=== PATIENT | male | born 1985 | race Caucasian/White ===

== ENCOUNTER 2020-10-06 07:22 | Emergency (ER) | payer MEDICAID ==
[~2020-10-06] VITALS: Ht 188 cm; Wt 105.6 kg
[2020-10-06 08:26] LABS: BASOPHILS # (AUTO) 0.1 X10'3 (0-0.2); BASOPHILS % (AUTO) 0.5 % (0-1); EOSINOPHILS # (AUTO) 0.2 X10'3 (0-0.9); EOSINOPHILS % (AUTO) 2.1 % (0-6); HEMATOCRIT 52.5 % (42.0-52.0); LYMPHOCYTES # (AUTO) 1.6 X10'3 (1.1-4.8); LYMPHOCYTES % (AUTO) 14.6 % (21-51); MEAN CORPUSCULAR HEMOGLOBIN 33.2 PG (27.0-31.0); MEAN CORPUSCULAR HGB CONC 35.2 g/dL (33.0-36.5); MEAN CORPUSCULAR VOLUME 94.2 FL (78-98); MEAN PLATELET VOLUME 10.3 FL (7.4-10.4); MONOCYTES # (AUTO) 1.1 X10'3 (0-0.9); MONOCYTES % (AUTO) 10.5 % (2-12); NEUTROPHILS # (AUTO) 7.8 X10'3 (1.8-7.7); NEUTROPHILS % (AUTO) 72.3 % (42-75); PLATELET COUNT 173 X10'3 (140-440); RED BLOOD COUNT 5.58 X10'6 (4.70-6.10); RED CELL DISTRIBUTION WIDTH 12.2 % (11.5-14.5); WHITE BLOOD COUNT 10.8 X10'3 (4.5-11.0)
[2020-10-06 08:40] LABS: ALANINE AMINOTRANSFERASE 21 U/L (12-78); ALBUMIN 4.3 G/DL (3.4-5.0); ALBUMIN/GLOBULIN RATIO 1.1 (1.1-1.5); ALKALINE PHOSPHATASE 70 IU/L (46-116); ANION GAP 8 (8-16); ASPARTATE AMINO TRANSFERASE 12 U/L (10-37); BILIRUBIN,TOTAL 0.7 MG/DL (0.1-1.0); BLOOD UREA NITROGEN 11 MG/DL (7-18); BUN/CREATININE RATIO 11.6 (5.4-32.0); CALCIUM 9.1 MG/DL (8.5-10.1); CHLORIDE 105 MMOL/L (99-107); CREATININE 0.95 MG/DL (0.60-1.10); GLUCOSE 97 MG/DL (70-104); POTASSIUM 4.2 MMOL/L (3.5-5.1); SODIUM 143 MMOL/L (135-145); TOTAL CARBON DIOXIDE 30.5 MMOL/L (24-32); TOTAL PROTEIN 8.2 G/DL (6.4-8.2); eGFR 89 ML/MIN
--- NOTE | 2020-10-06 08:42 | NUR ---
CALLED CT TO INFORM THAT PT IS READY ,PT HAS IV ACCESS.
[2020-10-06] MEDS ORDERED: iohexol 300mg/ml 100ml inj. ONE (08:46)
[2020-10-06 09:00] LABS: HEMOGLOBIN 18.5 g/dl (14.0-17.9)
[2020-10-06 09:24] VITALS: BP 150/107
[2020-10-06] MEDS ORDERED: MELO7.5T12 PO (10:24)
[2020-10-06] MEDS ORDERED: CYCL-1 PO (10:24)
== END 2020-10-06 10:46 | disposition home or self-care (01) ==
LOC: ER 07:23
DX: M75.22 Bicipital tendinitis, left shoulder (principal); G89.29 Other chronic pain; E05.90 Thyrotoxicosis, unspecified without thyrotoxic crisis or storm; F17.200 Nicotine dependence, unspecified, uncomplicated; Z88.0 Allergy status to penicillin; Z79.899 Other long term (current) drug therapy; Z90.49 Acquired absence of other specified parts of digestive tract; Z85.89 Personal history of malignant neoplasm of other organs and systems
CPT/HCPCS: 36415; 70491; 80053; 85025; 99285; Q9967; 99284

== ENCOUNTER 2025-06-27 17:42 | Emergency (ER) | payer MEDICAID ==
[~2025-06-27] VITALS: Ht 188 cm; Wt 105.5 kg
[~2025-06-27 17:42] MED LIST: CYCL-1 PO; MELO7.5T12 PO
[2025-06-27 17:44] VITALS: BP 180/113; PULSE 108; O2SAT 96
--- NOTE | 2025-06-27 19:44 | Physician Documentation ---
History of Present Illness ~ Chief Complaint: Back Pain Stated Complaint: BACK PAIN Time Seen by MD: 19:04 Primary Medical Doctor: [facility] HPI 40-year-old male presents to the ED with a complaint of acute onset lumbar pain and upper cervical pain after maneuvering a injured in this afternoon. He had denies any motor and sensory dysfunction in the lower extremities, and saddle anaesthesia, impacting bladder and bowel function. Does report sciatica down the right leg. Day of Onset: Jun 27, 2025 Medication Reconciliation Allergies: Coded Allergies: Penicillins (Verified Allergy, Unknown, 05/27/14) Scheduled Cyclobenzaprine* (Cyclobenzaprine*), 1 TAB PO HS Meloxicam (Mobic), 1 TAB PO DAILY Past Medical History Past Medical History: Hyperthyroidism, Chronic Pain, Chronic Back Pain Past Surgical History: cholecystectomy Patient History: (Cancer) Malignant carcinoid tumor MOTHER, Name: Tenisha Schuler (glaucoma,uterine cancer.pancreatic,arthritis), Born [birth year], Age: 64, Not a twin, Onset:23 (DM Type1) Diabetes mellitus type 1 FATHER, Name: Leonard Schuler (Asthma,emphysema,COPD (non-smoker),arthritis,Type 1 Diabetic), Born [birth year], Age: 68, Not a twin, Onset:52 Asthma FATHER, Name: Leonard Schuler (Asthma,emphysema,COPD (non-smoker),arthritis,Type 1 Diabetic), Born [birth year], Age: 68, Not a twin, Onset:20's - 25 Cardiac arrest Hypercholesterolemia No Family History of: (CABG) Coronary artery bypass grafting (CAD) Coronary arteriosclerosis (CHF) Congestive heart failure (COPD) Chronic obstructive lung disease (CVA) Cerebrovascular accident (DM Type 2) Diabetes mellitus type 2 ([place]) Myocardial infarction (PVD) Peripheral vascular disease (TIA) Transient ischemic attack Alzheimer's disease Aortic aneurysm Smoking Status: Current every day smoker Alcohol Use: None Drug Use: none Lives with: Mother, Father Lives In: Home Occupation: employed Review of Systems All Other Systems at this time: Reviewed and Negative ROS As stated above in the HPI, otherwise all systems are reviewed and negative. Constitutional: Reports: no symptoms reported Physical Exam Physical Exam Vital Signs: Temperature: 97.7, Source: Temporal, Heart Rate: 108, Respiratory Rate: 16, BP: 180/113, Pulse Oximetry: 96, Weight: 105.500 Oxygen Flow Rate: 0 Physical Exam General: Alert, no apparent distress. Neck: Full range of motion. Respiratory: Lungs clear, no respiratory distress. Cardiovascular: Regular rate and rhythm, no murmurs. Gastrointestinal: Soft, nontender, nondistended. Bowels sounds present. Extremities: Normal range of motion, no deformity. Neurologic: Oriented x4. reflexes normal Psychiatric: Normal mood and affect. Skin: Normal color, warm and dry. No edema, no ecchymosis. Progress Results/Orders Results/Orders Completed Orders - JUANITO HERNANDEZ [employer] Diazepam Tablet (Valium Tablet) (06/27/25 19:35) Morphine 4mg/Ml Inj. (Morphine Inj.) (06/27/25 19:35) Ketorolac Trometh 30mg/Ml Vial (Toradol (06/27/25 19:35) Medications Received in ER Medications (Trade) Dose Ordered Sig/Veronique Route PRN Reason Start Time Stop Time Status Last Admin Dose Admin (Valium tablet) 10 mg ONCE ONCE PO 06/27/25 19:35 06/27/25 19:36 DC 06/27/25 19:49 10 MG (morphine inj.) 4 mg ONCE ONCE IM 06/27/25 19:35 06/27/25 19:36 DC 06/27/25 19:50 4 MG (Toradol inj. 30mg/ml) 30 mg ONCE ONCE IM 06/27/25 19:35 06/27/25 19:36 DC 06/27/25 19:52 30 MG Vital Signs 06/27/25 06/27/25 06/27/25 17:44 19:50 19:52 Temp 97.7 Pulse 108 Resp 16 16 16 B/P (MAP) 180/113 Pulse Ox 96 O2 Flow Rate 0 Medical Decision Making Differential Dx:Considerations: Include: AAA, Aortic dissection, Appendicitis, Bowel obstruction, Cholelithiasis, Cholangitis, DJD, Fracture, Hepatitis, HNP, Musculoskeletal pain, Pancreatitis, Pyelonephritis, Renal infarction, Strain, Urinary obstruction, Urolithiasis, Urinary tract infection, Other Departure Disposition: 01 HOME / SELF CARE / HOMELESS Impression: Primary Impression: Back problem Discharge Instructions: Acute Back Pain, Adult Referrals: NO PRIMARY CARE PROVIDER (PCP) Prescriptions Naproxen (Naproxen) 500 Mg Tablet 1 TAB PO Q12H, #20 TAB Prov: JUANITO HERNANDEZ NP 06/27/25 Cyclobenzaprine HCl (Cyclobenzaprine HCl) 10 Mg Tablet 1 TAB PO Q8H for muscle spasms for 10 Days, #30 TAB Prov: JUANITO HERNANDEZ NP 06/27/25 Education Educated: Patient Educated regarding: diagnosis Signature Scribe Signature: g Attestation: Scribed for Juanito Hernandez [employer] by Juanito Villaseñor NP . 06/27/25 19:43 JUANITO HERNANDEZ NP Jun 27, 2025 19:43
[2025-06-27] MEDS: morphine 4 MG/ML inj SYRINge IM ONE (19:50)
[2025-06-27 19:52] VITALS: RESP 16
[2025-06-27] MEDS: ketorolac trometh 30MG/ML vial 30 MG/ML VIAL IM ONE (19:52)
[2025-06-27] MEDS ORDERED: NAPR-56 PO (20:29)
[2025-06-27] MEDS ORDERED: CYCL-394 PO (20:29)
[2025-06-27 20:35] VITALS: TEMP 97.7
== END 2025-06-27 20:38 | disposition home or self-care (01) ==
LOC: ER 17:42
DX: M54.50 Low back pain, unspecified (principal); M54.2 Cervicalgia; E78.00 Pure hypercholesterolemia, unspecified; J45.909 Unspecified asthma, uncomplicated; F17.200 Nicotine dependence, unspecified, uncomplicated; E05.90 Thyrotoxicosis, unspecified without thyrotoxic crisis or storm; Z88.0 Allergy status to penicillin; Z90.49 Acquired absence of other specified parts of digestive tract; Z79.899 Other long term (current) drug therapy
CPT/HCPCS: 96372; 99284; J1885; J2270

== ENCOUNTER 2025-09-12 11:33 | Emergency (ER) | payer MEDICAID ==
[~2025-09-12] VITALS: Ht 188 cm; Wt 110.5 kg
[2025-09-12 11:45] VITALS: BP 152/109; TEMP 98.1
[2025-09-12] MEDS: ondansetron 4mg rapidly disintigrating tab PO ONE (12:27)
[2025-09-12] MEDS ORDERED: ONDA-243 PO (12:42)
[2025-09-12] MEDS ORDERED: PANT40TA54 PO (12:42)
--- NOTE | 2025-09-12 12:43 | Physician Documentation ---
History of Present Illness ~ Chief Complaint: Nausea Stated Complaint: NAUSEA Time Seen by MD: 12:17 Primary Medical Doctor: [facility] Source: patient Mode of Arrival: POV Exam Limitations: no limitations HPI 40-year-old male with epigastric pain starting last night when he lays down. Patient tried Tums Pepto-Bismol and Maalox but continues to have some epigastric pain he does not drink. Patient has had history of pancreatitis but this feels different and only in the epigastric region. Some nausea without vomiting. No other associated symptoms no fevers chest pain or shortness of breath Medication Reconciliation Allergies: Coded Allergies: Penicillins (Verified Allergy, Unknown, 09/12/25) Scheduled Cyclobenzaprine* (Cyclobenzaprine*), 1 TAB PO HS Meloxicam (Mobic), 1 TAB PO DAILY Pantoprazole Sodium (Pantoprazole Sodium), 1 TAB PO DAILY Scheduled PRN ONDANSETRON ODT 4mg tablet (Ondansetron Odt), 1 TABLET PO Q6H PRN for nausea/vomiting Past Medical History Past Medical History: Hyperthyroidism, Chronic Pain, Chronic Back Pain Past Surgical History: cholecystectomy Patient History: (Cancer) Malignant carcinoid tumor MOTHER, Name: Tenisha Schuler (glaucoma,uterine cancer.pancreatic,arthritis), Born [birth year], Age: 65, Not a twin, Onset:23 (DM Type1) Diabetes mellitus type 1 FATHER, Name: Leonard Schuler (Asthma,emphysema,COPD (non-smoker),arthritis,Type 1 Diabetic), Born [birth year], Age: 68, Not a twin, Onset:52 Asthma FATHER, Name: Leonard Schuler (Asthma,emphysema,COPD (non-smoker),arthritis,Type 1 Diabetic), Born [birth year], Age: 66, Not a twin, Onset:20's - 25 Cardiac arrest Hypercholesterolemia No Family History of: (CABG) Coronary artery bypass grafting (CAD) Coronary arteriosclerosis (CHF) Congestive heart failure (COPD) Chronic obstructive lung disease (CVA) Cerebrovascular accident (DM Type 2) Diabetes mellitus type 2 ([place]) Myocardial infarction (PVD) Peripheral vascular disease (TIA) Transient ischemic attack Alzheimer's disease Aortic aneurysm Alcohol Use: None Drug Use: none Lives with: Mother, Father Lives In: Home Occupation: employed Review of Systems All Other Systems at this time: Reviewed and Negative Gastrointestinal: Reports: see HPI Physical Exam Vital Signs: RN Vital Signs have been reviewed: Yes, Temperature: 98.1, Source: Temporal, Heart Rate: 91, Respiratory Rate: 16, BP: 152/109, Pulse Oximetry: 99, Weight: 110.500 Oxygen Flow Rate: 0 Physical Exam General: Alert, no apparent distress. HEENT: moist mucous membranes. Neck: Full range of motion. Respiratory: No respiratory distress speaking in full sentences Chest: No accessory muscle use. Cardiovascular: Appears well perfused Gastrointestinal: Epigastric tenderness with palpation no flank pain Neurologic: Oriented x4. Psychiatric: Normal mood and affect. Skin: Normal color, warm and dry. No edema, no ecchymosis. Progress Results/Orders Results/Orders Completed Orders - JENI PRASAD NP Pantoprazole Tablet (Protonix) (09/12/25 12:45) Magnesium Hydrox Oral Susp. (Milk Of Mag (09/12/25 12:45) Lidocaine 2% Viscous (Xylocaine 2% Visco (09/12/25 12:45) Medications Received in ER Medications (Trade) Dose Ordered Sig/Veronique Route PRN Reason Start Time Stop Time Status Last Admin Dose Admin (Zofran ODT tablet) 4 mg ONCE ONCE PO 09/12/25 11:50 09/12/25 11:51 DC 09/12/25 12:27 4 MG Vital Signs 09/12/25 11:45 Temp 98.1 Pulse 91 Resp 16 B/P (MAP) 152/109 Pulse Ox 99 O2 Flow Rate 0 Medical Decision Making Additional information obtaine: N/A Findings With epigastric pain patient is watching food triggers. Started last night after eating something late and laying down. GI cocktail ordered patient's vital signs reassuring. Patient sees [facility] but is awaiting a new provider. No nausea vomiting or blood in stool Diff Dx GI Bleed:Consideration: Unlikely: AE fistula, Angiodysplasia, Bleeding diathesis, Blood loss anemia, Carcinoma, Diverticulosis, Diverticulitis, Esophageal varicies, Esophagitis, Gastritis, Gastroenteritis, Inflammatory BD, Elena-Armas syndrome, Meckel's diverticulum, PUD, Other Diff Dx Pain:Considerations: Include: Cholecystitis, Constipation, Esophageal rupture, Esophagitis, Gastritis, Gastroenteritis, Hernia, Inflammatory BD, Other Diff Dx N/V/D:Considerations: Include: GE reflux Diff Dx Rectal:Considerations: Unlikely: Fissure, Fistula, Foreign body, Impaction, Perirectal abscess, Prostatitis, Rectal prolapse, Subcutaneous abscess, Thrombosed hemorrhoid, Ulcer, UTI, Other Departure Time of Disposition: 12:41 Disposition: 01 HOME / SELF CARE / HOMELESS Impression: Primary Impression: GERD (gastroesophageal reflux disease) Condition: Stable Discharge Instructions: Nausea and Vomiting, Adult, [id number] Additional Instructions: This is likely acid reflux. Try medication prescribed daily to see if occurrence or symptoms lessened over the next few weeks. Contact primary care for an appointment for possible GI referral as necessary. Avoid acidic foods alcohol and caffeine Referrals: NO PRIMARY CARE PROVIDER (PCP) Prescriptions ONDANSETRON ODT 4mg tablet (ONDANSETRON ODT) 4 Mg Tab.rapdis 1 TABLET PO Q6H PRN for nausea/vomiting, #16 TABLET Prov: JENI PRASAD NP 09/12/25 Pantoprazole Sodium (Pantoprazole Sodium) 40 Mg Tablet.dr 1 TAB PO DAILY for 30 Days, #30 TAB 0 Refills Prov: JENI PRASAD NP 09/12/25 Education Educated: Patient Educated regarding: diagnosis, treatment, need for follow up Signature Scribe Signature: No scribe Attestation: The note accurately reflects work and decisions made by me.Jeni DWYER 09/12/25 12:43 JENI PRASAD NP Sep 12, 2025 12:43
[2025-09-12] MEDS: magnesium hydroxide 30ml (MOM) UD suspension PO ONE (13:20)
[2025-09-12] MEDS: pantoprazole 40mg Tablet.DR PO ONE (13:20)
[2025-09-12] MEDS: LIDOcaine 2% Viscous 15ml cup MM ONE (13:20)
[2025-09-12 13:24] VITALS: PULSE 88; RESP 18; O2SAT 99
== END 2025-09-12 13:26 | disposition home or self-care (01) ==
LOC: ER 11:33
DX: K21.9 Gastro-esophageal reflux disease without esophagitis (principal); J45.909 Unspecified asthma, uncomplicated; G89.29 Other chronic pain; E78.00 Pure hypercholesterolemia, unspecified; M19.90 Unspecified osteoarthritis, unspecified site; Z88.0 Allergy status to penicillin; Z90.49 Acquired absence of other specified parts of digestive tract; Z87.19 Personal history of other diseases of the digestive system; Z79.899 Other long term (current) drug therapy
CPT/HCPCS: 99284